=== PATIENT | female | born 1975 | race Two or more races ===

== ENCOUNTER → 2024-04-25 | Outpatient (CLI) | payer BC, SELFPAY ==
[2024-04-25 07:58] LABS: Collection Type, Urine Clean Catch
[2024-04-25 08:31] LABS: Basophils % (Auto) 1 % (0-2.5); Eosinophils # (Auto) 0.2 Thou/mm3 (0.0-0.5); Eosinophils % (Auto) 3 % (0-10); Hematocrit 40.1 % (36.0-46.0); Hemoglobin 13.5 g/dL (12.0-16.0); Immature Granulocytes % (Auto) 0 % (0-0); Immature Granulocytes Auto 0.01 Thou/mm3 (0.00-0.00); Lymphocytes # (Auto) 2.7 Thou/mm3 (1.0-4.8); Lymphocytes % (Auto) 47 % (10-50); Mean Corpuscular HGB Conc 33.7 g/dl (31.0-37.0); Mean Corpuscular Hemoglobin 31.1 pg (25.0-35.0); Mean Corpuscular Volume 92 fL (80-100); Monocytes # (Auto) 0.3 Thou/mm3 (0.0-0.8); Monocytes % (Auto) 6 % (0-12); Neutrophils # (Auto) 2.4 Thou/mm3 (1.8-7.7); Neutrophils % (Auto) 43 % (37-80); Nucleated Red Blood Cell % 0 /100 WBC (0); Platelet Count 316 Thou/mm3 (140-440); RDW Standard Deviation 43.8 fL (36.4-46.3); Red Blood Count 4.34 Miln/mm3 (4.00-5.20); White Blood Count 5.6 Thou/mm3 (3.6-11.0)
[2024-04-25 08:39] LABS: Bacteria,Urine Rare; Bilirubin,Urine Negative (Negative); Blood,Urine Negative (Negative); Clarity,Urine Clear (Clear/Hazy); Color,Urine Colorless (Lt Yel-Yel); Culture Indicated,Urine Not Indicated; Glucose, Urine Negative (Negative); Ketones,Urine Negative (Negative); Leukocyte Esterase,Urine Negative (Negative); Nitrite,Urine Negative (Negative); Protein,Urine Negative (Neg - Trace); RBC,Urine 3 /hpf (0-3); Specific Gravity,Urine 1.012 (1.001-1.035); Squamous Epithelial Cell,Urine 2 /hpf (0-5); Urobilinogen,Urine Negative mg/dL (0.0-1.0); WBC,Urine < 1 /hpf (0-5)
[2024-04-25 08:44] LABS: Glucose Estimated Average 108 mg/dL (80-131); Hemoglobin A1C 5.4 % Hgb (4.8-6.0)
[2024-04-25 08:53] LABS: Alanine Aminotransferase 124 U/L (10-49); Albumin, Serum 4.9 gm/dL (3.5-5.0); Albumin/Globulin Ratio 1.8 (1.2-2.2); Alkaline Phosphatase 81 U/L (46-116); Anion Gap 8 (7-16); Aspartate Amino Transferase 62 U/L (0-34); BUN/Creatinine Ratio 27 Ratio (12-20); Bilirubin,Total 0.6 mg/dL (0.3-1.2); Blood Urea Nitrogen 16 mg/dL (9-23); Calcium 10.4 mg/dL (8.3-10.6); Calcium (Corrected) 10.4 mg/dL (8.5-10.1); Carbon Dioxide 26.8 mMol/L (20.0-31.0); Cardiac Risk Estimate 4.5 RATIO (3.7-5.6); Chloride 103 mMol/L (98-107); Cholesterol 267 mg/dL (132-200); Creatinine (Component) 0.6 mg/dL (0.6-1.3); Free T4 (Free Thyroxine) 1.14 ng/dL (0.89-1.76); Globulin 2.7 gm/dL (2.3-3.5); Glucose 100 mg/dL (74-106); HDL Cholesterol 59 mg/dL (40-60); LDL Cholesterol,Calculated 175 mg/dL (0-130); Osmolality,Calculated 276 (275-295); Potassium 4.5 mMol/L (3.4-5.1); Sodium 138 mMol/L (136-145); Thyroid Stimulating Hormone 1.65 uIU/mL (0.55-4.78); Total Protein 7.6 gm/dL (5.7-8.2); Triglycerides 167 mg/dL (30-150); eGFR > 60 See Note
[2024-04-25 09:00] LABS: Vitamin D 25 Hydroxy Total 9.4 ng/mL (7.3-40.2)
== END | disposition home or self-care (01) ==
PROVIDERS: PCP Nurse Practitioner Family; Referring Provider Nurse Practitioner Family; Visit Provider Nurse Practitioner Family
DX: E66.9 Obesity, unspecified (principal)
CPT/HCPCS: 36415; 80053; 80061; 81001; 82306; 83036; 84439; 84443; 85025

== ENCOUNTER → 2024-12-26 | Outpatient (CLI) | payer BC, SELFPAY ==
[2024-12-26 09:04] LABS: Vitamin D 25 Hydroxy Total 34.6 ng/mL (7.3-40.2)
[2024-12-26 09:06] LABS: Glucose Estimated Average 105 mg/dL (80-131); Hemoglobin A1C 5.3 % Hgb (4.8-6.0)
[2024-12-26 09:09] LABS: Alanine Aminotransferase 87 U/L (10-49); Albumin, Serum 4.5 gm/dL (3.5-5.0); Albumin/Globulin Ratio 1.6 (1.2-2.2); Alkaline Phosphatase 79 U/L (46-116); Anion Gap 8 (7-16); Aspartate Amino Transferase 50 U/L (0-34); BUN/Creatinine Ratio 20 Ratio (12-20); Bilirubin,Total 0.6 mg/dL (0.3-1.2); Blood Urea Nitrogen 14 mg/dL (9-23); Calcium 10.1 mg/dL (8.3-10.6); Calcium (Corrected) 10.1 mg/dL (8.5-10.1); Carbon Dioxide 28.3 mMol/L (20.0-31.0); Cardiac Risk Estimate 4.3 RATIO (3.7-5.6); Chloride 106 mMol/L (98-107); Cholesterol 277 mg/dL (132-200); Creatinine (Component) 0.7 mg/dL (0.6-1.3); Free T4 (Free Thyroxine) 1.26 ng/dL (0.89-1.76); Globulin 2.8 gm/dL (2.3-3.5); Glucose 103 mg/dL (74-106); HDL Cholesterol 64 mg/dL (40-60); LDL Cholesterol,Calculated 181 mg/dL (0-130); Osmolality,Calculated 283 (275-295); Potassium 4.3 mMol/L (3.4-5.1); Sodium 142 mMol/L (136-145); Thyroid Stimulating Hormone 1.66 uIU/mL (0.55-4.78); Total Protein 7.3 gm/dL (5.7-8.2); Triglycerides 160 mg/dL (30-150); eGFR > 60 See Note
== END | disposition home or self-care (01) ==
PROVIDERS: PCP Family Medicine; Referring Provider Family Medicine; Visit Provider Family Medicine
DX: E11.65 Type 2 diabetes mellitus with hyperglycemia (principal); E78.1 Pure hyperglyceridemia; E03.2 Hypothyroidism due to medicaments and other exogenous substances; E53.9 Vitamin B deficiency, unspecified
CPT/HCPCS: 36415; 80053; 80061; 82306; 83036; 84439; 84443

== ENCOUNTER 2025-01-13 11:33 | Observation (INO) | payer BC, SELFPAY ==
[2025-01-13] VITALS (10 sets, daily range): BP systolic 135–158; BP diastolic 82–99; PULSE 64–78; RESP 16–20; TEMP 36.5–37.5; O2SAT 96–99; BMI 37.0
--- NOTE | 2025-01-13 | XR_ITS ---
Examination: MRI brain without intravenous contrast. Date and time of exam: January 13, 2025, 1654 hours INDICATIONS: Stroke alert today, onset focal neurologic deficit including left-sided body weakness and paresthesias beginning 1:30 PM Technique: Multiple axial and sagittal images of the brain obtained. Siemens high-resolution 1.5 Fernanda short bore scanners utilized. Sagittal sections, T1-weighted, TR 500, TE 14, are performed. Axial sections proton-density and T2-weighted have been obtained. Inversion recovery axial images, TR 9, 260, TE 111, TI 2500. Diffusion weighted images, axial sections, TR 4800, TE 128, B value 1000 Axial sections, ADC map, TR 4800, TE 128 Findings: Enlargement of the sella turcica is not present. The optic chiasm and infundibular are not remarkable. Prepontine and interpeduncular cisterns are not enlarged. There is no localized enlargement of the medulla or teresa. Fourth ventricle and cerebellar tonsils appear normal in position. No subacute area of hemorrhage density is seen. Mass in the cerebellopontine angle region is not evident. Globes symmetrical. Orbital musculature including medial lateral rectus muscles do not exhibit abnormality. Diffusion-weighted images demonstrate no focus of restricted diffusion. Increased white matter signal multiple punctate foci of increased signal throughout the white matter Mass effect upon the ventricular system is not identified. Impression: Negative for acute hemorrhage mass effect or midline shift No acute infarct Demyelinating disease
--- NOTE | 2025-01-13 11:44 | PC.NURSE ---
DR. CALLOWAY TALKED TO PT AND SHE SAID NOT TO CALL A STROKE ALERT AND LET PT GO THROUGH RME PER PROTOCOL. RME PROVIDER TO SEE PT.
--- NOTE | 2025-01-13 12:42 | XR_ITS ---
Examination: CT brain head without contrast. 2-D sagittal coronal reconstructions Date and time of exam:January 13, 2025, 1320 hours INDICATIONS: Left-sided body numbness beginning this morning CTDI: vol (mGy):53.5 DLP: (mGycm):1110 Technique: Multiple CT axial sections of the brain have been obtained, 5 mm slice thickness. Contrast has not been administered. 2-D sagittal, coronal reconstructions have been obtained Low dose protocols were performed. One or more of the following dose reduction techniques were used; automated exposure control, adjustment of the mA and/or KV according to patient size, use of iterative reconstruction technique. Findings: No significant ventricular enlargement. Intra-axial or extra-axial hemorrhage density is not seen. No mass effect or midline shift Basal cisterns are not remarkable. Fourth ventricle is midline. Cranial vault intact. Impression: Negative for acute hemorrhage, mass effect or midline shift As clinically warranted, brain MRI follow-up would best assess for demyelinating disease, acute ischemic change
--- NOTE | 2025-01-13 12:43 | PD.EDRME ---
Rapid Medical Screening Exam E Arrival date/time: 01/13/25 11:33 This is a case of 49-year-old female with no medical history came in in the emergency room due to left-sided weakness with tingling sensation patient stated around 130 it started as pain tingling sensation electric related like sensation on the left side of the body patient states that the numbness started also in the face but now it is only on his extremities patient states she had some slurring of speech this morning but resolved prior to the arrival in the emergency room patient will be seen by the next provider patient was told that if there will be a worsening of symptoms she will get the attention of any medical person here in the emergency room Per dr alejo who saw thepatient first ordered no stroke alert Chief Complaint: General Adult/Misc Complain Time Seen by Provider: 01/13/25 15:05 Vital signs: Vital Signs Pulse Rate 78 01/13/25 11:43 Respiratory Rate 20 01/13/25 11:43 Blood Pressure 158/99 H 01/13/25 11:43 Pulse Oximetry (%) 98 01/13/25 11:43 Oxygen Delivery Method Room Air 01/13/25 11:43
[2025-01-13 13:09] LABS: Basophils # (Auto) 0.0 Thou/mm3 (0.0-0.2); Basophils % (Auto) 0 % (0-2.5); Eosinophils # (Auto) 0.1 Thou/mm3 (0.0-0.5); Eosinophils % (Auto) 2 % (0-10); Hematocrit 40.7 % (36.0-46.0); Hemoglobin 14.0 g/dL (12.0-16.0); Immature Granulocytes Auto 0.02 Thou/mm3 (0.00-0.00); Lymphocytes # (Auto) 3.2 Thou/mm3 (1.0-4.8); Lymphocytes % (Auto) 47 % (10-50); Mean Corpuscular HGB Conc 34.4 g/dl (31.0-37.0); Mean Corpuscular Hemoglobin 31.6 pg (25.0-35.0); Mean Corpuscular Volume 92 fL (80-100); Monocytes # (Auto) 0.3 Thou/mm3 (0.0-0.8); Monocytes % (Auto) 5 % (0-12); Neutrophils # (Auto) 3.2 Thou/mm3 (1.8-7.7); Neutrophils % (Auto) 47 % (37-80); Nucleated Red Blood Cell # 0.00 Thou/mm3 (0.00-0.00); Nucleated Red Blood Cell % 0 /100 WBC (0); Platelet Count 246 Thou/mm3 (140-440); RDW Standard Deviation 42.5 fL (36.4-46.3); Red Blood Count 4.43 Miln/mm3 (4.00-5.20); White Blood Count 6.8 Thou/mm3 (3.6-11.0)
[2025-01-13 13:14] LABS: Collection Type, Urine Clean Catch
[2025-01-13 13:21] LABS: Alanine Aminotransferase 90 U/L (10-49); Albumin, Serum 4.8 gm/dL (3.5-5.0); Albumin/Globulin Ratio 1.5 (1.2-2.2); Alkaline Phosphatase 82 U/L (46-116); Anion Gap 12 (7-16); Aspartate Amino Transferase 60 U/L (0-34); BUN/Creatinine Ratio 17 Ratio (12-20); Bilirubin,Total 0.5 mg/dL (0.3-1.2); Blood Urea Nitrogen 12 mg/dL (9-23); Calcium 10.2 mg/dL (8.3-10.6); Calcium (Corrected) 10.2 mg/dL (8.5-10.1); Carbon Dioxide 26.4 mMol/L (20.0-31.0); Chloride 103 mMol/L (98-107); Creatinine (Component) 0.7 mg/dL (0.6-1.3); Globulin 3.2 gm/dL (2.3-3.5); Glucose 91 mg/dL (74-106); Osmolality,Calculated 280 (275-295); Potassium 4.2 mMol/L (3.4-5.1); Sodium 141 mMol/L (136-145); Total Protein 8.0 gm/dL (5.7-8.2); eGFR > 60 See Note
[2025-01-13 13:41] LABS: HCG Qualitative,Urine Negative
[2025-01-13 13:44] LABS: Bilirubin,Urine Negative (Negative); Blood,Urine Negative (Negative); Clarity,Urine Clear (Clear/Hazy); Color,Urine Colorless (Lt Yel-Yel); Glucose, Urine Negative (Negative); Ketones,Urine Negative (Negative); Leukocyte Esterase,Urine Negative (Negative); Nitrite,Urine Negative (Negative); PH,Urine 6.0 (5.0-7.0); Protein,Urine Negative (Neg - Trace); RBC,Urine < 1 /hpf (0-3); Specific Gravity,Urine 1.011 (1.001-1.035); Squamous Epithelial Cell,Urine 2 /hpf (0-5); Urobilinogen,Urine Negative mg/dL (0.0-1.0); WBC,Urine 1 /hpf (0-5)
--- NOTE | 2025-01-13 15:22 | XR_ITS ---
Examination: CTA carotids with intravenous contrast CTA brain, head with intravenous contrast. 2-D sagittal, coronal reconstructions. 3-D reconstructions. Exam date and time: January 13, 2025, 1538 hours INDICATIONS: Stroke alert, onset left-sided body numbness beginning this morning CTDI: vol (mGy) 27.7 DLP: (mGycm) 467 Technique: Multiple CTA axial brain, head carotid images post intravenous contrast injection 75 cc, Isovue-[id number]. 2-D sagittal, coronal reconstructions. 3-D reconstructions, 3-D post processing including vascular maximum intensity projection images. Low dose protocols were performed. One or more of the following dose reduction techniques were used; automated exposure control, adjustment of the mA and/or KV according to patient size, use of iterative reconstruction technique. Findings: No common carotid carotid bifurcation or significant internal carotid artery stenoses Codominant vertebral arteries with no critical stenoses in the neck Basilar artery posterior cerebral branches do fill with no large vessel occlusions Juxtasellar petrous portions internal carotid arteries, middle cerebral anterior cerebral arteries fill with no large vessel occlusions IMPRESSION: No significant neck arterial stenoses No cerebral large vessel arterial occlusions or thrombus
--- NOTE | 2025-01-13 15:22 | XR_ITS ---
Examination: AP chest single view Technique one AP portable upright chest single view Date and time: January 13, 2025, 1452 hours INDICATIONS: Shortness breath chest pain weakness today FINDINGS: Normal heart size. No pneumonia or pulmonary edema The osseous structures are intact IMPRESSION: No active disease
--- NOTE | 2025-01-13 15:22 | EKG_ITS ---
[facility] Test Date: 2025-01-13 Pat Name: JEFRY JORGENSEN Department: Room: - Gender: Female Deputy Director Of Nursing: : 1975 Requested By: Narinder Moctezuma Order Number: [id number] Reading MD: Narinder Moctezuma Measurements Intervals [place] Rate: 77 P: 39 GA: 155 QRS: 5 QRSD: 89 T: 51 QT: 381 QTc: 432 Interpretive Statements SINUS RHYTHM NONSPECIFIC T-WAVE ABNORMALITY Compared to ECG 05/06/2019 08:38:28 T-wave abnormality now present /store/S0/[id number].pdf
--- NOTE | 2025-01-13 15:22 | XR_ITS ---
Examination: CT brain head without contrast. 2-D sagittal coronal reconstructions Date and time of exam:January 13, 2025, 1530 hours INDICATIONS: Stroke alert, onset focal neurologic deficit today, comparison January 13, 2025 1320 hours Technique: Multiple CT axial sections of the brain have been obtained, 5 mm slice thickness. Contrast has not been administered. 2-D sagittal, coronal reconstructions have been obtained Low dose protocols were performed. One or more of the following dose reduction techniques were used; automated exposure control, adjustment of the mA and/or KV according to patient size, use of iterative reconstruction technique. Findings: No significant ventricular enlargement. Intra-axial or extra-axial hemorrhage density is not seen. No mass effect or midline shift Basal cisterns are not remarkable. Fourth ventricle is midline. Cranial vault intact. Impression: Negative for acute hemorrhage, mass effect or midline shift
--- NOTE | 2025-01-13 15:25 | PD.EDADULT ---
ED General RME/HPI General Chief complaint: General Adult/Misc Complain Stated complaint: SENT BY PCP TO R/O STROKE Time Seen by Provider: 01/13/25 15:05 Arrival date/time: 01/13/25 11:33 CC currently burning sensation numbness and hot sensation to the left side of the body HPI onset at 130 this morning, 13 hours ago, went back to sleep after 2 hours woke back up again continued to have the numbness and warmth but no electrical sensation in the same locations. Went back to sleep a second time for couple of hours woke back up again continues now to have the numbness in her fingertips and her tongue which is remained consistent throughout the entire time starting at 1:30 AM. Currently the patient continues to have slight numbness of the tongue, and numbness in the fingertips noted subtle over pronunciation to pronounce words clearly. 2 episodes in a conversation where the patient mixed her words up. RME / HPI RME / HPI narrative: 01/13/25 11:33 This is a case of 49-year-old female with no medical history came in in the emergency room due to left-sided weakness with tingling sensation patient stated around 130 it started as pain tingling sensation electric related like sensation on the left side of the body patient states that the numbness started also in the face but now it is only on his extremities patient states she had some slurring of speech this morning but resolved prior to the arrival in the emergency room patient will be seen by the next provider patient was told that if there will be a worsening of symptoms she will get the attention of any medical person here in the emergency room Per dr alejo who saw thepatient first ordered no stroke alert Related Data Home Medications ?Medication ?Instructions ?Recorded ?Confirmed multivitamin (Multiple Vitamins 1 tab PO DAILY 05/06/19 05/07/19 tablet) Previous Rx's ?Medication ?Instructions ?Recorded acetaminophen-caffeine 500 mg-65 1 tab PO Q6H PRN pain #60 tabs 01/03/22 mg tablet (Excedrin Tension Headache) ibuprofen 800 mg tablet 800 mg PO TID PRN pain #30 tabs 01/03/22 Allergies Allergy/AdvReac Type Severity Reaction Status Date / Time pineapple Allergy Swelling Verified 01/13/25 11:37 of Lip/Tongue/Throat prochlorperazine (From AdvReac TONGUE Verified 01/13/25 11:37 Compazine) SWELLING Review of Systems Review of Systems Narrative Review of Systems: GEN: No fever, no chills, no weight loss EYES: No discharge, no visual changes, no pain HEENT: No ear pain, no congestion, no sore throat PULM: No shortness of breath, no cough, no congestion CV: No chest pain, no dyspnea on exertion, no palpitations GI: No nausea, no vomiting, no diarrhea, no pain, no constipation : No frequency, no urgency, no dysuria MUSC/SKEL: No joint pain, no back pain SKIN: No rash PSYCH: No hallucinations, no depression HEME/LYMPH: No easy bleeding or bruising tendencies NEURO: No weakness, no headache Past Medical History Past Medical History NEUROLOGIC: Negative Neurological Disorders or Seizures CARDIAC: Negative Cardiac Disorders or Congestive Heart Failure RESPIRATORY: Negative Chronic Obstructive Pulmonary Disease (COPD) or Asthma GASTROINTESTINAL: Positive Gastrointestinal Disorders and Gall Bladder Disease; Negative Hepatitis GENITOURINARY: Positive Genitourinary Disorders and Kidney Stones (NO SURG); Negative Renal Disease REPRODUCTIVE: Positive Previous Pregnancies MUSCULOSKELETAL: Negative Musculoskeletal Disorders ENDOCRINE: Negative Endocrine Disorders, Diabetes Mellitus Type 1 or Diabetes Mellitus Type 2 HEMATOLOGIC: Negative Blood Disorders or Sickle Cell Disease OTHER HISTORY: Positive Shingles and Chicken Pox; Negative Hospitalization, Autoimmune Disease, Falls, Blood Transfusions, Anesthesia Reactions, Chemotherapy, Radiation Therapy, MRSA, Measles, Mumps or Cancer Family History FAMILY HISTORY: Positive Family Respiratory Disorders, Family Cardiac Disorders, Family Cancer and Family Surgery; Negative Family Psychiatric Problems, Family Gastrointestinal Problems or Family Anesthesia Reaction Surgical History SURGICAL: Positive Tubal Ligation; Negative Cardiac Surgery Social History SMOKING STATUS: Never smoker ED Exam Narrative Physical exam: [General: Obese not in any acute distress Head normocephalic HEENT: Eyes pupils are PERRLA EOMs are intact mouth pink moist membranes uvula is midline swallow symmetrical. All other subsystems of HEENT within acceptable limits with subtle over pronunciation of words to articulate clearly which patient admits is secondary to compensating for the numbness of the tip of her tongue. Neck is supple nontender Chest equal chest rise nontender to palpation Respiratory: Clear to auscultation no wheezes crackles or rubs CV: Rate rhythm is regular no murmurs rubs or clicks Abdomen is distended secondary to body habitus soft nontender no masses positive bowel sounds all 4 quadrants Back: No CVA tenderness no spinous process tenderness from cervical spine thoracic and lumbar spine Skin: Intact no petechiae rash induration ulceration or crepitus Extremities: Moving all extremity against resistance cap refill less than 2 seconds neurosensory intact Neuro: Awake alert oriented x3 Glascow coma 15 no focal deficits] Course Course Course Narrative: Patient's case clinical presentation discussed with Dr. Villalobos who recommends initiating stroke alert to rule out LVO's. No LVO on CT head and neck Discussion with teleneurology is started on aspirin and get MRI. MRI is unremarkable at 182, patient's case discussed with Wilfredo once the patient to be admitted for echo. Reassessment of the patient at 1914 shows everything is resolved except the numbness in her fingertips. Patient is now admitted to Dr. Taylor via the resident. After conversations with Dr. Villalobos. Patient is in agreement with this plan. Quality Measures none Orders Category Date Time Status Bedside Blood Glucose NOW Care 01/13/25 15:[address] Screening NOW Care 01/13/25 12:43 Active Estimation Manager NOW Care 01/13/25 15:22 Active Continuous Pulse Oximetry NOW Care 01/13/25 15:22 Completed EKG (ED ONLY) *Do not use* NOW Care 01/13/25 15:22 Completed In and Out Catheter NEEDED Care 01/13/25 15:22 Active MRI Screening NOW Care 01/13/25 15:48 Active NIH Stroke Scale now Care 01/13/25 15:22 Active NPO NOW Care 01/13/25 15:22 Active Nurse Swallow Screen x1 Care 01/13/25 15:22 Active Consult to Neurology / Tele-Neurology Routine Cons 01/13/25 15:[address] angio stroke protocol Stat Exams 01/13/25 15:[address] head/brain wo con Stat Exams 01/13/25 12:[address] stroke protocol Stat Exams 01/13/25 15:22 Completed EKG (ED Only) Stat Exams 01/13/25 15:22 Draft MR head/brain wo con Stat Exams 01/13/25 Completed XR chest 1V portable Stat Exams 01/13/25 15:22 Completed CBC Stat Lab 01/13/25 12:50 Completed Comprehensive Metabolic Panel Stat Lab 01/13/25 12:50 Completed Drug Screen,Urine Stat Lab 01/13/25 13:06 Completed HCG Qualitative,Urine Stat Lab 01/13/25 13:06 Completed HCG Titer if Positive Stat Lab 01/13/25 12:50 Completed Magnesium Stat Lab 01/13/25 12:50 Completed Partial Thromboplastin Time Stat Lab 01/13/25 12:50 Completed Prothrombin Time with INR Stat Lab 01/13/25 12:50 Completed Troponin I Stat Lab 01/13/25 12:50 Completed Urinalysis Stat Lab 01/13/25 13:06 Completed Aspirin [Ecotrin] Med 01/13/25 15:47 Discontinued 81 mg PO X1 ONE Ondansetron Inj [Zofran Inj] Med 01/13/25 15:22 Active 4 mg IVP Q4HR PRN Oxygen Delivery NOW RT 01/13/25 15:22 Active Vital Signs Vital signs: Vital Signs Pulse Rate 78 01/13/25 11:43 Respiratory Rate 20 01/13/25 11:43 Blood Pressure 158/99 H 01/13/25 11:43 Pulse Oximetry (%) 98 01/13/25 11:43 Oxygen Delivery Method Room Air 01/13/25 11:43 Discharge Plan Plan Patient Disposition: Other Care w/in Hosp ([facility]) Patient condition on transfer: Stable Prescriptions/Referrals Prescriptions/Med Rec: No Action multivitamin [Multiple Vitamins] Tablet 1 tab PO DAILY Excedrin Tension Headache 500-65 mg tablet 1 tab PO Q6H PRN (Reason: pain) Qty: 60 0RF ibuprofen 800 mg tablet 800 mg PO TID PRN (Reason: pain) Qty: 30 0RF Referrals: Ced Viera MD [Primary Care Provider, Family Practice] - In 1 week Problem List Clinical Impression: Brain TIA Patient/Caregiver Discharge Instructions Print Language: Thai Stand Alone Forms: Tonja Award Info., Patient Portal Info Letter PA/IMAGE CONSULTANT Supervising Physician PA/IMAGE CONSULTANT Supervising Physician: Narinder Orta ENP [facility] Clinical Information Provided by: patient Medical Records reviewed [facility] Meds/Rx considered, not ordered None Labs/Rad/Tests considered, not ordered None Chronic Illness/Social Conditions which may negatively complicate care or outcome(s)-explain: None or not applicable Labs Labs: interpreted by id Lab(s) Interpretation(s): CBC shows no acute leukocytosis anemia thrombocytopenia CMP shows no significant electrolyte imbalances renal impairment T. bili is within acceptable limits AST and ALT are mildly elevated alk phos within acceptable limits Troponin is unremarkable Urine is negative for UTI UA UDS is negative hCG is negative Imaging Imaging interpretation: interpreted by me Imaging Interpretation(s): CT head is negative CTA head is negative for LVO's Chest x-ray is unremarkable Medication Administration(s) Medication Administration History Ondansetron HCl (Ondansetron Inj 2 Mg/Ml Inj 2 Ml) 4 mg IVP Q4HR PRN PRN Reason: NAUSEA OR VOMITING Stop: 02/12/25 15:21 Discontinued Medications Aspirin (Aspirin Ec 81 Mg Tabec) 81 mg PO X1 ONE Stop: 01/13/25 15:48 Last Admin: 01/13/25 16:05 Dose: 81 mg Documented By: BY
[2025-01-13 15:45] LABS: INR 1.0 (0.9-1.3); Partial Thromboplastin Time 25.6 Seconds (22.0-36.0); Prothrombin Time 10.3 Seconds (9.0-12.2)
--- NOTE | 2025-01-13 15:48 | ESCONSULT_ITS ---
Tele Neuro Consultation Consultation Date 01/13/25 Most Recent Vital Signs Last Vital Signs Temp 99.5 F 01/13/25 15:08 Pulse 75 01/13/25 15:08 Resp 18 01/13/25 15:08 BP 157/94 H 01/13/25 15:08 Pulse Ox 98 01/13/25 15:08 O2 Del Method Room Air 01/13/25 15:08 Laboratory-Coagulation Panel PT 10.3 Seconds (9.0-12.2) 01/13/25 12:50 INR 1.0 (0.9-1.3) 01/13/25 12:50 APTT 25.6 Seconds (22.0-36.0) 01/13/25 12:50 Consultation Narrative [facility] Tele[facility]urology Consult Services Patient Name:???Sara Merida Date of :???1975 Identification Number:??? Date of Service:???01/13/2025 15:24:28 Diagnosis:?R29.810 - Facial numbness/ Facial weakness Impression: ?Patient is a 49-year-old female with unclear past medical history is being evaluated for concerns of left-sided numbness. ?Patient mentions that yesterday when she was sleeping, she was woke up by with left-sided pain involving the face, arm and leg. She states that the pain was suddenly coming on and it felt like another shock. She states that it initially started on the face and then it went down her arm into her neck. She got up drunk some water and at that time she felt like she had some difficulty swallowing. She went back to bed she woke up at 3 AM again and that time she noticed that the left side of her face was completely numb. She woke up at around 6 AM again and she noticed that the left side of her face and her body are completely numb. She initially went to her PCP who sent her to the ED to rul e out a stroke. Denies taking any blood thinners. Mentions that she sometimes takes tramadol for pain. ? ?On exam she is awake, alert, extraocular motion, visual silva are intact. Face is symmetric. No upper extremity pronator drift. Gait is intact with intact bilateral lower extremity weakness. Sensation loss to light touch on the left side when compared to the right. Speech and language function is intact. Mentation is intact. Gait and swallowing functions are intact. ? ?Head CT appears unremarkable with no clear intracranial acute pathology. ? ?Rule out a left thalamic acute vascular event. ?Last well-known greater than 4-1/2 hours, no clear disabling nature to the symptoms, patient is not an IV thrombolytic candidate. ?Can start aspirin 81 mg. ?Please obtain MRI brain without contrast. ?If the MRI does not reveal any acute changes, please discontinue antiplatelet. ?Can allow permissive hypertension up to a systolic of 220. Further stroke workup based on MRI brain results. Our recommendations are outlined below. Recommendations: ? Bedside Swallow Eval ? DVT Prophylaxis ? IV Fluids, Normal Saline ? Head of Bed 30 Degrees ? Euglycemia and Avoid Hyperthermia (PRN Acetaminophen) ?Rule out a left thalamic acute vascular event. ?Last well-known greater than 4-1/2 hours, no clear disabling nature to the symptoms, patient is not an IV thrombolytic candidate. ?Can start aspirin 81 mg. ?Please obtain MRI brain without contrast. ?If the MRI does not reveal any acute changes, please discontinue antipla telet. ?Can allow permissive hypertension up to a systolic of 220. Further stroke workup based on MRI brain results. Sign Out: ? Discussed with Emergency Department Provider Advanced Imaging: Advanced Imaging Deferred because: Non-disabling symptoms as verified by the patient; no cortical signs so not consistent with LVO Metrics: Last Known Well: 01/13/2025 01:30:00 Dispatch Time: 01/13/2025 15:24:28 Arrival Time: 01/13/2025 15:24:36 Initial Response Time: 01/13/2025 15:26:05Symptoms: numbness and tingling left side. Initial patient interaction: 01/13/2025 15:30:41 NIHSS Assessment Completed: 01/13/2025 15:34:53Patient is not a candidate for Thrombolytic. Thrombolytic Medical Decision: 01/13/2025 15:36:14Patient was not deemed candidate for Thrombolytic because of following reasons: LKW outside 4.[address] Head: CT head unremarkable for acute infarction or hemorrhage per Radiology: report reviewed Primary Provider Notified of Diagnostic Impression and Management Plan on: 01/13/2025 15:42:35 History of Present Illness:Patient is a 49 year old Female. Patient was brought by private transportation with symptoms of numbness and tingling left side. Patient is a 49-year-old female with unclear past medical history is being evaluated for concerns of left-sided numbness. Patient mentions that yesterday when she was sleeping, she was woke up by with left-sided pain involving the face, arm and leg. She states that the pain was suddenly coming on and it felt like another shock. She states that it initially started on the face and then it went down her arm into her neck. She got up drunk some water and at that time she felt like she had some difficulty swallowing. She went back to bed she woke up at 3 AM again and that time she noticed that the left side of her face was completely numb. She woke up at around 6 AM again and she noticed that the left side of her face and her body are completely numb. She initially went to her PCP who sent her to the ED to rule out a stroke. Denies taking any blood thinners. Mentions that she sometimes takes tramadol for pain. Past Medical History: ?There is no history of Hypertension ?There is no history of Diabetes Mellitus ?There is no history of Atrial Fibrillation Medications: No Anticoagulant use? No Antiplatelet use Reviewed EMR for current medications Allergies:? Description:?as per chart Social History: Smoking: No Family History: There is no family history of premature cerebrovascular disease pertinent to this consultation ROS : 14 Points Review of Systems was performed and was negative except mentioned in HPI. Past Surgical History: There Is No Surgical History Contributory To Today?s Visit Examination: BP(150/78),?Pulse(86), 1A: Level of Consciousness - Alert; keenly responsive?+ 0 1B: Ask Month and Age - Both Questions Right?+ 0 1C: Blink Eyes & Squeeze Hands - Performs Both Tasks?+ 0 2: Test Horizontal Extraocular Movements - Normal?+ 0 3: Test Visual Silva - No Visual Loss?+ 0 4: Test Facial Palsy (Use Grimace if Obtunded) - Normal symmetry?+ 0 5A: Test Left Arm Motor Drift - No Drift for 10 Seconds?+ 0 5B: Test Right Arm Motor Drift - No Drift for 10 Seconds?+ 0 6A: Test Left Leg Motor Drift - No Drift for 5 Seconds?+ 0 6B: Test Right Leg Motor Drift - No Drift for 5 Seconds?+ 0 7: Test Limb Ataxia (FNF/Heel-Eldridge) - No Ataxia?+ 0 8: Test Sensation - Mild-Moderate Loss: Less Sharp/More Dull?+ 1 9: Test Language/Aphasia - Normal; No aphasia?+ 0 10: Test Dysarthria - Normal?+ 0 11: Test Extinction/Inattention - No abnormality?+ 0 NIHSS Score:?1 Pre-Morbid Modified Sage Scale: 1 Points = No significant disability despite symptoms; able to carry out all usual duties and activities Spoke with :?ED Provider This consult was conducted in real time using interactive audio and video technology. Patient was informed of the technology being used for this visit and agreed to proceed. Patient located in hospital and provider located at home/office setting. Patient is being evaluated for possible acute neurologic impairment and high probability of imminent or life-threatening deterioration. I spent total of 45 minutes providing care to this patient, including time for face to face visit via telemedicine, review of medical records, imaging studies and discussion of findings with providers, the patient and/or family. Dr Sandro Keating [facility] For Inpatient follow-up with [facility] physician please call [facility] at . As we are not an outpatient service for any post hospital discharge needs please contact the hospital for assistance. If you have any questions for the [facility] physicians or need to reconsult for clinical or diagnostic changes please contact us via [facility] at . Signature :Ron Keating
[2025-01-13 15:53] LABS: Amphetamine/Methamp Scrn,U Negative (Negative); Barbiturate Screen,Urine Negative (Negative); Benzodiazepines Screen,Urine Negative (Negative); Benzoylecgonine Screen, Ur Negative (Negative); Fentanyl Screen,Urine Negative (Negative); Opiate Screen,Urine Negative (Negative); THC Screen,Urine Negative (Negative)
[2025-01-13 15:56] LABS: HCG Titer if Positive Negative
[2025-01-13 16:03] LABS: Magnesium 2.1 mg/dL (1.6-2.6); Troponin I < 0.002 ng/mL (0.0-0.045)
[2025-01-13] MEDS: ASPIRIN EC 81 MG TABEC PO (16:05)
--- NOTE | 2025-01-13 20:04 | ECHO_ITS ---
Transthoracic Echo Report Ht (in): 61 Wt (lb): 196 Exam Location: [id number] Status: Emergency Factory Hand: Raiza Palmer Indications: Procedure Performed: BP: 116 / 66 HR: MEASUREMENTS (Male / Female) Normal Values 2D ECHO LV Diastolic Diameter PLAX 4.9 cm 4.2 - 5.9 / 3.9 - 5.3 cm LV Systolic Diameter PLAX 3.1 cm IVS Diastolic Thickness 0.9 cm 0.6 - 1.0 / 0.6 - 0.9 cm LVPW Diastolic Thickness 1.2 cm 0.6 - 1.0 / 0.6 - 0.9 cm LV Relative Wall Thickness 0.4 LVOT Diameter 1.9 cm LA Volume Index 13.4 cm?/m? 16 - 28 cm?/m? Ascending Aorta Diameter 2.6 cm M-MODE AV Cusp Separation MM 0.9 cm DOPPLER AV Peak Velocity 136.0 cm/s AV Peak Gradient 7.4 mmHg AV Mean Gradient 4.0 mmHg AV Velocity Time Integral 27.0 cm LVOT Peak Velocity 92.8 cm/s LVOT Peak Gradient 3.4 mmHg LVOT Velocity Time Integral 21.2 cm AV Area Cont Eq vti 2.2 cm? AV Area Cont Eq pk 1.9 cm? MV Area PHT 2.9 cm? Mitral E Point Velocity 65.5 cm/s Mitral A Point Velocity 67.3 cm/s Mitral E to A Ratio 1.0 LV E' Lateral Velocity 8.6 cm/s Mitral E to LV E' Lateral Ratio 7.6 LV E' Septal Velocity 5.0 cm/s Mitral E to LV E' Septal Ratio 13.1 TR Peak Velocity 200.3 cm/s TR Peak Gradient 16.1 mmHg PV Peak Velocity 103.0 cm/s PV Peak Gradient 4.2 mmHg FINDINGS Left Ventricle Normal left ventricular size, wall thickness, systolic function with no obvious regional wall motion abnormalities. Normal left ventricular diastolic filling pattern for age. The ejection fraction is visually estimated at 60-65 %. Right Ventricle The right ventricle is normal in size and systolic function. Left Atrium The left atrium is normal by two-dimensional, color flow and Doppler imaging with no structural abnormalities, no thrombus formation present. Right Atrium The right atrium is normal by two-dimensional imaging, color flow and Doppler imaging with no structural abnormalities, no thrombus formation present. Atrial Septum The interatrial septum not well visualized. No patent foramen ovale demonstrated by agitated saline injection. Aorta The aorta is normal by two-dimensional, color flow and Doppler interrogation. Mitral Valve The mitral valve is normal by two-dimensional, color flow and Doppler interrogation.Trace mitral regurgitation. Aortic Valve The aortic valve is trileaflet and normal by two-dimensional, color flow and Doppler interrogation. There is no significant aortic valve regurgitation. Tricuspid Valve The tricuspid valve is normal by two-dimensional, color flow and Doppler interrogation. There is trace tricuspid valve regurgitation. Pulmonic Valve The pulmonic valve is not well visualized. There is no significant pulmonic valve regurgitation. Vessels The pulmonary artery appears normal. The inferior vena cava pulmonary and hepatic veins appear normal. Pericardium The pericardium is normal by two-dimensional imaging. There is no significant pericardial effusion. CONCLUSIONS Indication: stroke workup Normal left ventricular size and function. Approximate ejection fraction is 60- 65%. Trace mitral and trace tricuspid regurgitation noted. Negative bubble study No evidenc eof PFO Minerva Gerard (Electronically Signed) Final Date: 15 January 2025 18:35
--- NOTE | 2025-01-13 20:09 | ESHP_ITS ---
<Statement entered by Andre Nice MD - 01/14/25 16:11> I have discussed and was present for the essential components of the history, physical examination, diagnosis, and treatment plan with the resident. I agree with the patient's care as documented by the resident and amended herein by me. Andre Nice MD FACP. Documentation for date of: 01/13/25 HPI History of Present Illness History of present illness: Ms. Merida is a 49 y/o female with PMH TIA (per chart, though patient denies), HLD who presented to the ED on 01/13 with left sided numbness. Patient woke up from sleep at 0130 01/13 (LKAW) with shooting pain down left side of body from head to toe. She went back to sleep and woke up around 0300 and noticed left sided numbness of face and body (UE and LE) and tingling of tongue. She was still able to get up and make a packed lunch for her . She drank some water at this time and noticed some difficulty with swallowing. She went back to sleep and woke up later with continued left sided numbness and some slurred speech. This continuation of sx prompted her to see her PCP, Dr. Ced Calle who told her to come to the ED for stroke workup. Patient now reports improved but residual left-sided numbness. Denies current difficulty with swallowing, speaking, tongue tingling, or weakness. Patient denies any similar episodes in the past. However, per chart review, patient was listed to have hx of CVA and seizures. Patient denies this history, states she has never been on blood thinners, ASA, statin, or seizure medications. She denies hx of afib, CHF, HTN, DVT, CT, T2DM, stroke/TIA. Patient managing hyperlipidemia with diet and exercise, not on statin. ED course: LKAW 01/13 0130. NIHSS 1. BP 158/99 --> 135/91, RR 20. Labs significant for mild transaminitis AST 60, ALT 90 (elevated from previous AST 50, ALT 87). Troponin, UDS, UA negative. EKG NSR HR [address] head negative for hemorrhage, mass effect, midline shift. CTA head/neck negative for LVO or arterial stenosis. MRI stroke protocol negaive for acute infarct, noted chronic white matter changes. Consulted neurology (Dr. Villalobos) who recommended admitting to hospital to complete TIA workup. PMHx: Hyperlipidemia Allergies: Prochlorperazine Home meds: Tramadol PRN, Trazodone 150 mg PO QHS, vitamin D and B12 supplement SgHx: Right ovarian cystectomy, appendectomy, cholecystectomy, C4-C7 fusion (2 years ago), left rotator cuff repair SHx: Denies smoking, recreational drug use. Occasional EtOH use. Retired psychosocial rehabilitation counselor. No dietary restrictions. Lives at home with . FHx: Dad - valley fever, . Brother - CT, CAD Review of Systems Review of Systems Narrative Review of Systems: 14 point ROS negative other than HPI Exam Vital Signs Temp Pulse Resp BP Pulse Ox O2 Del Method 98.5 F 74 19 138/82 H 98 Room Air 01/13/25 19:15 01/13/25 19:15 01/13/25 19:15 01/13/25 19:15 01/13/25 19:15 01/13/25 19:15 Narrative Exam General: No acute distress, well nourished Eye: PERRL, EOMI, normal conjunctiva, no scleral icterus HENT: Normocephalic, atraumatic, hearing intact to conversation at normal volume, moist oral mucosa Neck: Supple, non-tender, no JVD, no lymphadenopathy Lungs: CTAB, Non-labored respirations, symmetric chest rise Heart: S1 and S2 present, no MRG. Peripheral pulses intact bilaterally Abdomen: Soft, non-tender, non-distended Musculoskeletal: Normal range of motion and strength Skin: Skin is warm, dry, no rashes or lesions. Psychiatric: Cooperative, appropriate mood and affect Neurologic: Mental status: Orientation: Oriented to person, place, time, and situation Communication: Patient is cooperative and can follow simple instructions Language: Speech fluent, normal rate and volume, comprehension intact, repetition and naming intact Cranial nerves: CN II: Visual garcía intact CN III: Pupils equal, round, and reactive to light CN III, IV, : No gaze deviation, no nystagmus Horizontal pursuit: intact Vertical pursuit: intact Ptosis: none CN V: Facial sensation to light touch intact bilaterally at the forehead, cheeks, and jaw line R>L CN VII: Face symmetric, no facial droop appreciated CN VIII: Able to hear and respond to conversation at normal volume, intact to finger rub CN IX, X: Palate elevation symmetric, uvula midline CN XI: Head turn and shoulder shrug strong. ROM of head turn better on left than right, limited 2/2 local surgeries CN XII: Normal tongue protrusion without deviation, no fasciculations Motor: Normal bulk and tone No atrophy No abnormal movements or fasciculations Muscle strength: Shoulder abduction: R 5/5 L 5/5 Elbow flexion: R 5/5 L 5/5 Elbow extension: R 5/5 L 5/5 Hip flexion: R 5/5 L 5/5 Hip extension: R 5/5 L 5/5 Knee flexion: R 5/5 L 5/5 Knee extension: R 5/5 L 5/5 Sensory: Sensation to light touch intact UE, R>L Sensation to light touch intact b/l LE, symmetric Reflexes: Biceps (C5-6): R 2+ L 2+ Brachioradialis (C5-6): R 2+ L 2+ Triceps (C7-8): R 2+ L 2+ Patellae (L3-4): R 2+ L 2+ Achilles (S1-2):R 2+ L 2+ Cerebellum: RUE: No dysmetria (finger to nose) LUE: No dysmetria (finger to nose) RLE: No dysmetria (heel to ozuna) LLE: No dysmetria (heel to ozuna) Romberg: negative Gait: Normal stance, stride length, and arm swing Normal pivot turn without instability Results: Labs 01/13/25 12:50 01/13/25 12:50 Labs: Short CBC 01/13/25 Range/Units 12:50 WBC 6.8 (3.6-11.0) Thou/mm3 Hgb 14.0 (12.0-16.0) g/dL Hct 40.7 (36.0-46.0) % Plt Count 246 (140-440) Thou/mm3 BMP 01/13/25 12:50 Sodium 141 Potassium 4.2 Chloride 103 Carbon Dioxide 26.4 BUN 12 Creatinine 0.7 Glucose 91 Calcium 10.2 Cardiac Enzymes 01/13/25 Range/Units 12:50 Troponin I < 0.002 (0.0-0.045) ng/mL Liver Function 01/13/25 Range/Units 12:50 Total Bilirubin 0.5 (0.3-1.2) mg/dL AST 60 H (0-34) U/L ALT 90 H (10-49) U/L Alkaline Phosphatase 82 (46-116) U/L Albumin 4.8 (3.5-5.0) gm/dL Urine 01/13/25 Range/Units 13:06 Urine Color Colorless A (Lt Yel-Yel) Urine Clarity Clear (Clear/Hazy) Urine pH 6.0 (5.0-7.0) Ur Specific Lyndon 1.011 (1.001-1.035) Urine Protein Negative (Neg - Trace) Urine Glucose (UA) Negative (Negative) Quality Measures Quality Measures none Medications Home Medications and Allergies Home Medications ?Medication ?Instructions ?Recorded ?Confirmed ?Type trazodone 150 mg tablet 150 mg PO HS 01/13/25 History Allergies Allergy/AdvReac Type Severity Reaction Status Date / Time pineapple Allergy Swelling Verified 01/13/25 11:37 of Lip/Tongue/Throat prochlorperazine (From AdvReac TONGUE Verified 01/13/25 11:37 Compazine) SWELLING Visit Medications Acetaminophen (Acetaminophen 325 Mg Tablet) 650 mg PO Q6H PRN PRN Reason: PAIN SCALE 1-3 (mild Stop: 02/12/25 20:03 Enoxaparin Sodium (Enoxaparin Sod Inj 40 Mg/0.4 Ml Syringe) 40 mg SC QDAY KENNEDY Stop: 01/27/25 20:14 Ibuprofen (Ibuprofen Tab 400 Mg Tablet) 400 mg PO Q6HR PRN PRN Reason: Fever > 100.3 Stop: 02/12/25 20:03 Ondansetron HCl (Ondansetron Inj 2 Mg/Ml Inj 2 Ml) 4 mg IVP Q4HR PRN PRN Reason: NAUSEA OR VOMITING Stop: 02/12/25 15:21 Discontinued Medications Aspirin (Aspirin Ec 81 Mg Tabec) 81 mg PO X1 ONE Stop: 01/13/25 15:48 Last Admin: 01/13/25 16:05 Dose: 81 mg Assessment & Plan Plan Ms. Merida is a 49 y/o female with PMH TIA (per chart, though patient denies), HLD who presented to the ED on 01/13 with left sided numbness. Admitted for TIA workup. #Left sided numbness - improving #TIA Hx stroke/TIA: chart review states CVA hx, patient denies Hx afib: none Smoking hx: none Initial symptoms: left sided numbness of face, UE, LE --> improving but residual LKAW: 01/13 at 0130 Initial NIHSS: 1 Inital BP: 158/99 EKG: NSR HR 77, QTc 432 Initial glucose: 91 UDS: negative A1C: 5.3 (12/26/24) Lipids: Triglycerides 160, Cholesterol 277, LDL 181, HDL 64 (12/26/24, not on statin, managing with diet and exercise) TSH: 1.66 (12/26/24) Free T4: 1.26 (12/26/24) Vitamin D: WNL (12/26/24) Troponin: negative CT head w/o: Negative for hemorrhage, mass effect, midline shift CTA head/neck w/: negative for LVO, arterial stenosis MRI/MRA w/ and w/o: negative for acute hemorrhage. Chronic white matter changes. Read states c/f demyelinating disorder, pending neurology recs TTE: pending Passed bedside swallow study Meds given: ASA 81 mg PO x1 ABCD2 score (risk of stroke after suspected TIA): 4 (moderate risk) Plan: - If TIA ABCD2 score >= 4 --> DAPT x 21 days followed by single antiplatelet therapy - If NIHSS <=5 (minor) --> DAPT x 21 days followed by single antiplatelet therapy - Started ASA 81 mg PO daily, Plavix 75 mg PO daily, atrovastatin 80 mg PO daily for plaque stabilization - Pending echocardiogram , B12 level - Neuro consulted, appreciate recs - Neuro Checks q4h - Permissive HTN - Euglycemia and avoid Hyperthermia #Hyperlipidemia Lipids: Triglycerides 160, Cholesterol 277, LDL 181, HDL 64 (12/26/24, not on statin, managing with diet and exercise) Plan: - Atorvastatin 80 mg PO daily #Elevated BP without diagnosis of HTN No hx HTN, not on antihypertensives Plan: - CTM vitals #Transaminitis mild transaminitis AST 60, ALT 90 (elevated from previous AST 50, ALT 87) Plan: - CTM with daily CMP #PTSD Plan: - Trazodone 150 mg PO QHS (home med) Checklist Dispo: Admit to tele for q4h neuro checks, stroke w/u Diet: Regular Bowel Reg: n/a VTE ppx: Lovenox subQ GI ppx: n/a Pain mgmt: Ibuprofen PRN Code status: full Plan discussed with Dr. Kramer and Dr. Tex Carter MD PGY1
[2025-01-13] MEDS: CLOPIDOGREL BISULFATE 75 MG TABLET PO (20:26)
[2025-01-13] MEDS: ATORVASTATIN CALCIUM 20 MG TABLET 80 MG PO (20:26)
[2025-01-13] MEDS: ENOXAPARIN SOD INJ 40 MG/0.4 ML SYRINGE SC (20:26)
[2025-01-14] VITALS (9 sets, daily range): BP systolic 103–124; BP diastolic 66–80; PULSE 65–90; RESP 12–99; TEMP 36.1; O2SAT 96–98
[2025-01-14 05:41] LABS: Basophils # (Auto) 0.0 Thou/mm3 (0.0-0.2); Basophils % (Auto) 1 % (0-2.5); Eosinophils # (Auto) 0.2 Thou/mm3 (0.0-0.5); Eosinophils % (Auto) 3 % (0-10); Hematocrit 39.3 % (36.0-46.0); Hemoglobin 13.2 g/dL (12.0-16.0); Immature Granulocytes Auto 0.01 Thou/mm3 (0.00-0.00); Lymphocytes # (Auto) 2.7 Thou/mm3 (1.0-4.8); Lymphocytes % (Auto) 44 % (10-50); Mean Corpuscular HGB Conc 33.6 g/dl (31.0-37.0); Mean Corpuscular Hemoglobin 30.6 pg (25.0-35.0); Mean Corpuscular Volume 91 fL (80-100); Monocytes # (Auto) 0.4 Thou/mm3 (0.0-0.8); Monocytes % (Auto) 6 % (0-12); Neutrophils # (Auto) 2.7 Thou/mm3 (1.8-7.7); Neutrophils % (Auto) 46 % (37-80); Nucleated Red Blood Cell # 0.00 Thou/mm3 (0.00-0.00); Nucleated Red Blood Cell % 0 /100 WBC (0); Platelet Count 236 Thou/mm3 (140-440); RDW Standard Deviation 42.3 fL (36.4-46.3); Red Blood Count 4.31 Miln/mm3 (4.00-5.20); White Blood Count 6.0 Thou/mm3 (3.6-11.0)
[2025-01-14 06:11] LABS: Alanine Aminotransferase 75 U/L (10-49); Albumin, Serum 4.1 gm/dL (3.5-5.0); Albumin/Globulin Ratio 1.5 (1.2-2.2); Alkaline Phosphatase 73 U/L (46-116); Anion Gap 11 (7-16); Aspartate Amino Transferase 48 U/L (0-34); BUN/Creatinine Ratio 14 Ratio (12-20); Bilirubin,Total 0.6 mg/dL (0.3-1.2); Blood Urea Nitrogen 10 mg/dL (9-23); Calcium 9.4 mg/dL (8.3-10.6); Calcium (Corrected) 9.4 mg/dL (8.5-10.1); Carbon Dioxide 26.0 mMol/L (20.0-31.0); Chloride 105 mMol/L (98-107); Creatinine (Component) 0.7 mg/dL (0.6-1.3); Estimated Creatinine Clearance 96.4 mL/min (>60); Globulin 2.8 gm/dL (2.3-3.5); Glucose 107 mg/dL (74-106); Magnesium 2.0 mg/dL (1.6-2.6); Osmolality,Calculated 282 (275-295); Phosphorous 4.7 mg/dL (2.4-5.1); Potassium 4.0 mMol/L (3.4-5.1); Sodium 142 mMol/L (136-145); Total Protein 6.9 gm/dL (5.7-8.2); eGFR > 60 See Note
[2025-01-14] MEDS: ASPIRIN EC 81 MG TABEC PO (08:23)
[2025-01-14] MEDS: CLOPIDOGREL BISULFATE 75 MG TABLET PO (08:23)
[2025-01-14] MEDS: ENOXAPARIN SOD INJ 40 MG/0.4 ML SYRINGE SC (08:23)
[2025-01-14 09:07] LABS: Vitamin B12 759 pg/mL (211-911)
--- NOTE | 2025-01-14 12:30 | PC.PT ---
PT eval only. Patient was xI with bed mobility, transfers, and ambulation with no AD. Patient is safe to ambulate to the bathroom and in the halls with no AD. RN made aware.
--- NOTE | 2025-01-14 14:23 | PC.SS ---
Rounding note; Echo and Neurology Rec's pending. Patient will discharge home when medically cleared.
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
--- NOTE | 2025-01-14 18:41 | ESPR_ITS ---
Documentation for date of: 01/14/25 Subjective Subjective Interval history: Patient examined at bedside. Labs unremarkable, vitals are stable. A1c 5.3 from December 2024. Cholesterol 277, LDL 181, HDL 64. Symptoms have mostly resolved however still endorses mild numbness in fingertips. Patient passed swallow eval and is working with physical therapy. He denies any headaches or vision changes. Echo is pending. Review of MRI showed juxtacortical and periventricle demyelinating changes. A lumbar puncture was recommended to further evaluate possible demyelinating etiologies, including MS. The patient expressed understanding of the recommendation but wishes to first discuss it with her PCP prior to making a decision. Continue aspirin, Plavix, atorvastatin for 21 days. Continue aspirin and statin after 21 days. Exam Vital Signs Temp Pulse Resp BP Pulse Ox O2 Del Method 96.9 F 80 19 112/75 97 Room Air 01/14/25 16:00 01/14/25 16:00 01/14/25 16:00 01/14/25 16:00 01/14/25 16:00 01/14/25 16:00 Narrative Exam General: Middle age female, No acute distress, cooperative HEENT: NCAT, No JVD noted. Mucosa moist. Pupils are equal and reactive to light bilaterally Cardiovascular: Normal S1 and S2. Regular rate and rhythm. Respiratory: Lungs are clear to auscultation bilaterally. No wheezing or crackles heard. Abdomen: Soft, nontender, not distended, normal bowel sounds. Skin: Warm to touch, dry, no rashes noted Musculoskeletal: No gross injuries. Able to move all 4 extremities. No pitting edema Neuro: Alert and oriented x3. No focal neuro deficits. Cranial nerves: II through XII grossly intact. Speech and language: Normal with no dysarthria or dysphasia. Motor system: Tone and bulk: Normal: Strength: 5 out of 5 in all 4 extremities; No pronator drift noted. Deep tendon reflexes: 2+ bilaterally symmetrical. Plantar reflex: Downgoing bilaterally. Sensory system: Intact to all modalities of sensation bilaterally. Coordination: Intact to [id number]-[id number] and wypf-[id number]-bzsy test bilaterally. No ataxia, no dysmetria, or dysdiadochokinesia noted. No intention tremors noted. Gait: Not tested. No signs of meningeal irritation noted. Psych: Normal affect and mood Objective Labs 01/14/25 05:20 01/14/25 05:20 Labs: Laboratory Results - last 24 hr 01/14/25 05:20 WBC 6.0 RBC 4.31 Hgb 13.2 Hct 39.3 MCV 91 MCH 30.6 MCHC 33.6 RDW Std Deviation 42.3 Plt Count 236 Neut % (Auto) 46 Lymph % (Auto) 44 [place] % (Auto) 6 Eos % (Auto) 3 Baso % (Auto) 1 Neut # (Auto) 2.7 Lymph # (Auto) 2.7 [place] # (Auto) 0.4 Eos # (Auto) 0.2 Baso # (Auto) 0.0 Immature Gran # (Auto) 0.01 H Absolute Nucleated RBC 0.00 Immature Gran % 0 Nucleated RBC % 0 Sodium 142 Potassium 4.0 Chloride 105 Carbon Dioxide 26.0 Anion Gap 11 BUN 10 Creatinine 0.7 Estim Creat Clear Calc 96.4 eGFR > 60 BUN/Creatinine Ratio 14 Glucose 107 H Calculated Osmolality 282 Calcium 9.4 Corrected Calcium 9.4 Phosphorus 4.7 Magnesium 2.0 Total Bilirubin 0.6 AST 48 H ALT 75 H Alkaline Phosphatase 73 Total Protein 6.9 Albumin 4.1 D Globulin 2.8 Albumin/Globulin Ratio 1.5 Vitamin B12 759 Quality Measures Quality Measures none Assessment & Plan Assessment Current Active Medications: Generic Name Dose Route Start Last Admin Trade Name Freq PRN Reason Stop Dose Admin Acetaminophen 650 mg 01/13/25 20:04 Acetaminophen 325 Mg Tablet PO 02/12/25 20:03 Q6H PRN PAIN SCALE 1-3 (mild Aspirin 81 mg 01/14/25 09:00 01/14/25 08:23 Aspirin Ec 81 Mg Tabec PO 02/13/25 08:59 81 mg QDAY KENNEDY Administration Atorvastatin Calcium 80 mg 01/13/25 21:00 01/13/25 20:26 Atorvastatin Calcium 20 Mg Tablet PO 02/12/25 20:59 80 mg HS KENNEDY Administration Clopidogrel Bisulfate 75 mg 01/13/25 20:30 01/14/25 08:23 Clopidogrel Bisulfate 75 Mg Tablet PO 02/12/25 20:29 75 mg QDAY KENNEDY Administration Enoxaparin Sodium 40 mg 01/13/25 20:15 01/14/25 08:23 Enoxaparin Sod Inj 40 Mg/0.4 Ml Syringe SC 01/27/25 20:14 40 mg QDAY KENNEDY Administration Ibuprofen 400 mg 01/13/25 20:04 Ibuprofen Tab 400 Mg Tablet PO 02/12/25 20:03 Q6HR PRN Fever > 100.3 Ondansetron HCl 4 mg 01/13/25 15:22 Ondansetron Inj 2 Mg/Ml Inj 2 Ml IVP 02/12/25 15:21 Q4HR PRN NAUSEA OR VOMITING Trazodone HCl 150 mg 01/13/25 21:00 01/13/25 22:39 Trazodone Hcl 50 Mg Tablet PO 02/12/25 20:59 150 mg HS KENNEDY Administration Plan Ms. Merida is a 49 y/o female with PMH PTSD on trazodone, HLD controlled with lifestyle changes who presented to the ED on 01/13 with left sided numbness. Patient also endorsed mild difficulty in swallowing, noticed slurred speech. Symptoms had resolved upon arrival to the ED. Patient admitted for further evaluation and workup for stroke. #Left side numbness-improved #Slurred speech (resolved) 2/ #TIA Symptoms started overnight and lasted for about 20 minutes. After patient woke up in the morning symptoms reoccurred with mild dysphagia and slurred speech. He denies ever having the symptoms in the past, denies any vision changes or headaches. Stroke alert called in the ED, NIHSS score 1, CT head negative for acute hemorrhage or mass effect. CTA negative for LVO or stenosis. MRI showed juxtacortical and periventricle demyelinating changes. Negative for acute hemorrhage. A1c 5.3 from 01/02. Triglycerides 160, Cholesterol 277, LDL 181, HDL 64 (12/26/24, not on statin, managing with diet and exercise), TSH 1.66. - Echo is pending - Patient encouraged to undergo LP for further workup. Stated that she will talk more with family/PCP before consenting - Aspirin 81 mg daily -Plavix 75 mg daily - Atorvastatin 80 mg daily - After 21 days continue atorvastatin and aspirin #Hyperlipidemia Lipids: Triglycerides 160, Cholesterol 277, LDL 181, HDL 64 (12/26/24, not on statin, managing with diet and exercise) Plan: - Atorvastatin 80 mg PO daily #Transaminitis #PTSD Primary care team to manage above conditions and ongoing care needs. The patient's management plan was discussed with my attending physician Dr. Villalobos. Sheri Ch, PGY-2 Attending Provider Attestation/Addendum I personally have seen and examined the patient at the bedside and I agree with resident's findings, assessment and plan of care. Patient presenting symptoms are most consistent with TIA. As her symptoms are still persistent involving the left upper extremity numbness and painful muscle spasms involving left lower extremity, and the MRI brain showed findings suspicious for demyelination without underlying chronic small vessel disease, recommend that she get lumbar puncture to rule out demyelination. However patient is going to discuss with her primary care physician and let me know as an outpatient. Patient is stable from neurology standpoint for discharge after getting the echo results on dual antiplatelet agent therapy for 21 days followed by aspirin and statin.
[2025-01-14] MEDS: ATORVASTATIN CALCIUM 20 MG TABLET 80 MG PO (20:25)
[2025-01-15] VITALS: BP 115/68; PULSE 72; PULSE 79; RESP 18; TEMP 36.1; O2SAT 97
[2025-01-15 04:00] VITALS: BP 118/81; PULSE 69; PULSE 71; RESP 19; TEMP 36.1; O2SAT 98
--- NOTE | 2025-01-15 05:15 | PC.NURSE ---
Pt arrived to unit via bed as a transfer from Tele. Accompanied by RN and MEDICAL CENTER MANAGER. Pt is GCS 15, on room air, denies pain, nausea, and dizziness. Pt does report continued numbness to bilat hand fingertips and left thigh. Denies difficulty swallowing food, pills, or liquids. Will continue to monitor. Assume care of patient at this time.
[2025-01-15 06:00] VITALS: BMI 36.3
[2025-01-15 07:19] LABS: Basophils # (Auto) 0.0 Thou/mm3 (0.0-0.2); Basophils % (Auto) 0 % (0-2.5); Eosinophils # (Auto) 0.2 Thou/mm3 (0.0-0.5); Eosinophils % (Auto) 3 % (0-10); Hematocrit 39.6 % (36.0-46.0); Hemoglobin 13.3 g/dL (12.0-16.0); Immature Granulocytes Auto 0.01 Thou/mm3 (0.00-0.00); Lymphocytes # (Auto) 2.5 Thou/mm3 (1.0-4.8); Lymphocytes % (Auto) 41 % (10-50); Mean Corpuscular HGB Conc 33.6 g/dl (31.0-37.0); Mean Corpuscular Hemoglobin 30.7 pg (25.0-35.0); Mean Corpuscular Volume 92 fL (80-100); Monocytes # (Auto) 0.3 Thou/mm3 (0.0-0.8); Monocytes % (Auto) 5 % (0-12); Neutrophils # (Auto) 3.1 Thou/mm3 (1.8-7.7); Neutrophils % (Auto) 51 % (37-80); Nucleated Red Blood Cell # 0.00 Thou/mm3 (0.00-0.00); Nucleated Red Blood Cell % 0 /100 WBC (0); Platelet Count 244 Thou/mm3 (140-440); RDW Standard Deviation 42.0 fL (36.4-46.3); Red Blood Count 4.33 Miln/mm3 (4.00-5.20); White Blood Count 6.0 Thou/mm3 (3.6-11.0)
[2025-01-15 07:37] LABS: Alanine Aminotransferase 86 U/L (10-49); Albumin, Serum 4.3 gm/dL (3.5-5.0); Albumin/Globulin Ratio 1.6 (1.2-2.2); Alkaline Phosphatase 73 U/L (46-116); Anion Gap 9 (7-16); Aspartate Amino Transferase 50 U/L (0-34); BUN/Creatinine Ratio 18 Ratio (12-20); Bilirubin,Total 0.7 mg/dL (0.3-1.2); Blood Urea Nitrogen 11 mg/dL (9-23); Calcium 9.6 mg/dL (8.3-10.6); Calcium (Corrected) 9.6 mg/dL (8.5-10.1); Carbon Dioxide 25.9 mMol/L (20.0-31.0); Chloride 107 mMol/L (98-107); Creatinine (Component) 0.6 mg/dL (0.6-1.3); Estimated Creatinine Clearance 111.3 mL/min (>60); Globulin 2.7 gm/dL (2.3-3.5); Glucose 103 mg/dL (74-106); Magnesium 2.2 mg/dL (1.6-2.6); Osmolality,Calculated 282 (275-295); Phosphorous 4.4 mg/dL (2.4-5.1); Potassium 4.0 mMol/L (3.4-5.1); Sodium 142 mMol/L (136-145); Total Protein 7.0 gm/dL (5.7-8.2); eGFR > 60 See Note
[2025-01-15 08:00] VITALS: BP 122/73; PULSE 107; PULSE 79; RESP 17; TEMP 36.3; O2SAT 95
--- NOTE | 2025-01-15 08:26 | CHAP ---
Patient was visited by a Spiritual Care Volunteer on 01/14/2025 between 0855 and 1200 and received comfort, encouragement and/or prayer.
[2025-01-15] MEDS: ASPIRIN EC 81 MG TABEC PO (08:53)
[2025-01-15] MEDS: CLOPIDOGREL BISULFATE 75 MG TABLET PO (08:53)
[2025-01-15] MEDS: ENOXAPARIN SOD INJ 40 MG/0.4 ML SYRINGE SC (08:53)
[2025-01-15 09:41] VITALS: PULSE 88; RESP 18; RESP 97
--- NOTE | 2025-01-15 10:21 | PC.SS ---
SS follow up note; Echo results pending. Possible discharge home today.
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
[2025-01-15 12:00] VITALS: BP 116/79; PULSE 79; PULSE 81; RESP 17; TEMP 36.1; O2SAT 97
[2025-01-15 16:00] VITALS: PULSE 74
--- NOTE | 2025-01-16 00:04 | PD.VPROG1 ---
Telemedicine visit statement This visit was conducted with the use of phone was obtained on 01/15/25. Documentation for date of: 01/15/25 Subjective Subjective Interval history: Patient is in MedSurg. No new symptoms reported. Continued to have some paresthesias in left upper and left lower extremities. Virtual exam Vital Signs Temp Pulse Resp BP Pulse Ox O2 Del Method 97.0 F 74 17 116/79 97 Room Air 01/15/25 12:00 01/15/25 16:00 01/15/25 12:00 01/15/25 12:00 01/15/25 12:00 01/15/25 12:00 Objective Labs 01/15/25 06:52 01/15/25 06:52 Labs: Laboratory Results - last 24 hr 01/15/25 06:52 WBC 6.0 RBC 4.33 Hgb 13.3 Hct 39.6 MCV 92 MCH 30.7 MCHC 33.6 RDW Std Deviation 42.0 Plt Count 244 Neut % (Auto) 51 Lymph % (Auto) 41 [place] % (Auto) 5 Eos % (Auto) 3 Baso % (Auto) 0 Neut # (Auto) 3.1 Lymph # (Auto) 2.5 [place] # (Auto) 0.3 Eos # (Auto) 0.2 Baso # (Auto) 0.0 Immature Gran # (Auto) 0.01 H Absolute Nucleated RBC 0.00 Immature Gran % 0 Nucleated RBC % 0 Sodium 142 Potassium 4.0 Chloride 107 Carbon Dioxide 25.9 Anion Gap 9 BUN 11 Creatinine 0.6 Estim Creat Clear Calc 111.3 eGFR > 60 BUN/Creatinine Ratio 18 Glucose 103 Calculated Osmolality 282 Calcium 9.6 Corrected Calcium 9.6 Phosphorus 4.4 Magnesium 2.2 Total Bilirubin 0.7 AST 50 H ALT 86 H Alkaline Phosphatase 73 Total Protein 7.0 Albumin 4.3 Globulin 2.7 Albumin/Globulin Ratio 1.6 Assessment & Plan Problem List (1) Brain TIA: Status: Acute Assessment and plan: Resolving. Reassurance given to the patient regarding the workup. The patient is advised to continue with aspirin and Plavix for 21 days followed by aspirin alone along with statin. (2) Abnormal MRI of head: Status: Acute Assessment and plan: As the brain MRI showed findings with scattered white matter changes, recommended patient get CSF analysis to evaluate further and to rule out demyelinating disease. However patient wants to discuss with her primary care physician as an outpatient and then get back to me. Patient is stable for discharge home.
== END 2025-01-15 17:15 | disposition home or self-care (01) ==
LOC: SERX 19:17 → SERHOLD 01-14 08:48 → S2NX 01-14 08:49 → S3SX 01-15 05:13
PROVIDERS: Nurse Practitioner Family; Registered Nurse General Practice; Admitting Provider Internal Medicine; Emergency Provider Emergency Medicine; PCP Family Medicine; Visit Provider Student in an Organized Health Care Education/Training Program
DX: G45.9 Transient cerebral ischemic attack, unspecified (principal); E78.5 Hyperlipidemia, unspecified; R74.01 Elevation of levels of liver transaminase levels; F43.10 Post-traumatic stress disorder, unspecified; R03.0 Elevated blood-pressure reading, without diagnosis of hypertension
CPT/HCPCS: 36415; 70450; 70496; 70498; 70551; 71045; 80053; 80307; 81001; 81025; 82607; 83735; 84100; 84484; 84703; 85025; 85610; 85730; 93005; 93306; 96372; 97161; 99285; A4649; G0378; J1650; Q9967; A9270